=== PATIENT | female | born 1985 | race Caucasian/White ===

== ENCOUNTER 2020-06-20 14:07 | Emergency (ER) | payer OTHER ==
--- NOTE | 2020-06-20 14:49 | ED Physician Documentation ---
History of Present Illness - Stated complaint Stated Complaint: R LEG SWELLING REDNESS - Chief complaint Chief Complaint: Wound - History obtained from History obtained from: Patient - History of Present Illness Timing: Prior to arrival - Additonal information Additional information: 34-year-old female presents the emergency department for evaluation ofRight low er anterior calf redness. She reports that 3 to 4 days ago she noticed very small red papules but over the last 48 hours they have gotten progressively more swollen and tender. She does have a history of eczema just below the patella of the right knee that she has been using triamcinolone cream on. She reports that the appearance of the eczema is markedly improved. She denies fevers, any falls or trauma. She has no posterior calf pain tenderness. No history of DVT or cancer. No recent travel, immobilizations or surgery. Review of Systems Constitutional: reports: Reviewed and negative Ears: reports: Reviewed and negative Nose: reports: Reviewed and negative Throat: reports: Reviewed and negative Cardiac: reports: Reviewed and negative. denies: Pedal edema, Calf pain Respiratory: reports: Reviewed and negative GI: reports: Reviewed and negative : reports: Reviewed and negative Skin: reports: Rash, Lesions Musculoskeletal: reports: Reviewed and negative PD PAST MEDICAL HISTORY - Past Medical History Past Medical History: Yes - Present Medications Home Medications: Ambulatory Orders Medication Instructions Recorded Confirmed Cephalexin [Keflex] 500 mg PO Q6H #28 capsule 06/20/20 - Allergies Allergies/Adverse Reactions: Allergies Allergy/AdvReac Type Severity Reaction Status Date / Time No Known Drug Allergies Allergy Verified 06/20/20 14:14 - Social History Does the pt smoke?: No Smoking Status: Never smoker PD ED PE EXPANDED - General General: Alert, No acute distress - Derm Derm: Rash (exzema rash just below patella right knee. Multiple red papules anterior lower leg with surroudning erythema/induration c/w cellulitis) Results - Vitals Vitals: Vital Signs - 24 hr 06/20/20 14:11 Temperature 36.7 C Heart Rate 72 Respiratory 16 Rate Blood Pressure 145/80 H O2 Saturation 100 Oxygen O2 Source Room air PD MEDICAL DECISION MAKING - ED course Complexity details: reviewed results, considered differential, d/w patient ED course: 34-year-old female presents the emergency department for evaluation of right lower leg skin lesions. About 3 to 4 days ago she noticed faint red papules but over the last 48 hours that she has noticed progressive erythema and induration surrounding them. There has been no purulence or drainage. This is in a distinctly different area from her previously noted eczema rash. At this time her exam is more consistent with an early cellulitis. We will start her on Keflex. Advised warm compress. Emergent return precautions discussed. I do not believe that she has DVT. There is no leg swelling posterior calf pain tenderness. Departure - Departure Disposition: 01 Home, Self Care Clinical Impression: Cellulitis Qualifiers: Site of cellulitis: extremity Site of cellulitis of extremity: lower extremity Laterality: right Qualified Code(s): L03.115 - Cellulitis of right lower limb Condition: Stable Record reviewed to determine appropriate education?: Yes Instructions: Cellulitis Dc Prescriptions: Cephalexin [Keflex] 500 mg PO Q6H #28 capsule Comments: Georgina it looks like you have an early skin infection on your franks. Let us have you place a warm compress on the leg for 10 minutes 3 times a day. Please fill the prescription for the Keflex and begin taking as directed. With a superficial early infection I would expect the redness and pain to be improved over the next 48 to 72 hours. If worsening or not getting better please return to the emergency department.
[2020-06-20 15:05] VITALS: BP 132/74
== END 2020-06-20 15:02 | disposition home or self-care (01) ==
LOC: ED 14:07
DX: L03.115 Cellulitis of right lower limb (principal); L30.9 Dermatitis, unspecified
CPT/HCPCS: 99282; 99283

== ENCOUNTER 2021-02-09 18:20 | Emergency (ER) | payer OTHER ==
[2021-02-09 18:54] LABS: BASOPHILS % (AUTO) 0.6 %; EOSINOPHILS # (AUTO) 0.1 10^3/uL (0.0-0.7); EOSINOPHILS % (AUTO) 1.7 %; HCT - HEMATOCRIT 39.6 % (37.0-47.0); HGB - HEMOGLOBIN 13.4 g/dL (12.0-16.0); LYMPHOCYTES % (AUTO) 27.7 %; MEAN CORPUSCULAR HGB CONC 33.8 g/dL (32.0-36.0); MEAN CORPUSCULAR VOLUME 94.5 fL (81.0-99.0); MEAN PLATELET VOLUME 11.7 fL (7.9-10.8); MONOCYTES # (AUTO) 0.5 10^3/uL (0.0-1.0); MONOCYTES % (AUTO) 6.6 %; NEUTROPHILS # (AUTO) 4.5 10^3/uL (1.5-6.6); NEUTROPHILS % (AUTO) 63.3 %; PLT - PLATELET COUNT 172 10^3/uL (130-450); RED BLOOD COUNT 4.19 10^6/uL (4.20-5.40); WHITE BLOOD COUNT 7.1 x10^3/uL (4.8-10.8)
--- NOTE | 2021-02-09 19:04 | ED Physician Documentation ---
PD HPI CHEST PAIN - Stated complaint Stated Complaint: CP/LT SHOULDER PX - Chief complaint Chief Complaint: Cardiac - History obtained from History obtained from: Patient - History of Present Illness Pain level max: 3 Pain level now: 1 Location: No: Substernal, Left chest, Right chest, Left shoulder/arm, Right shoulder/arm, Left neck, Right neck, Left jaw, Right jaw, Epigastric, Upper back Radiation: No: Jaw, Neck, Back, Abdominal, Left upper extremity, Right upper extremity Improved by: Rest Worsened by: Movement Associated symptoms: No: Shortness of air, Diaphoresis, Nausea, Vomiting, Feeling faint / dizzy, General Weakness, Palpitations, Cough - Additional information Additional information: Patient is a 35-year-old female who states that she was having left shoulder pain earlier today before she laid down to take a nap. When she woke up to take a nap she was also feeling pain on the left upper portion of her chest. Worse with movement, better with rest. Does not recall any injuries or activity out of the normal. She states she is feeling better now, she feels like it felt like a pulled muscle. Does not have any cardiac history. No young cardiac history in the family. Nonradiating. No difficulty breathing. No fevers. No cough. No recent travel. Not on oral contraceptive pills or hormone replacement. Does not smoke. No leg swelling. 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 : None HEENT: None Psych: Depression Musculoskeletal: None Derm: None - Past Surgical History Past Surgical History: No - Present Medications Home Medications: Ambulatory Orders Medication Instructions Recorded Confirmed FLUoxetine [PROzac] 20 mg PO DAILY 02/09/21 02/09/21 - Allergies Allergies/Adverse Reactions: Allergies Allergy/AdvReac Type Severity Reaction Status Date / Time No Known Drug Allergies Allergy Verified 02/09/21 18:31 - Social History Does the pt smoke?: No Smoking Status: Never smoker PD ED PE NORMAL - Vitals Vital signs reviewed: Yes - General General: Alert and oriented X 3, No acute distress - HEENT HEENT: Moist mucous membranes - Neck Neck: Supple, no meningeal sign - Cardiac Cardiac: RRR, Strong equal pulses - Respiratory Respiratory: No respiratory distress, Clear bilaterally - Abdomen Abdomen: Soft, Non tender, Non distended - Back Back: No spinal TTP - Derm Derm: Warm and dry - Extremities Extremities: No edema, No calf tenderness / cord - Neuro Neuro: Alert and oriented X 3, marbleizing machine tender 2-12 intact, No motor deficit, No sensory deficit, Normal speech Eye Opening: Spontaneous Motor: Obeys Commands Verbal: Oriented GCS Score: 15 - Psych Psych: Normal mood, Normal affect - Free text exam Free text exam: No chest wall tenderness no spinal tenderness. No tenderness about the left shoulder. Full range of motion without pain. Results - Vitals Vitals: Vital Signs - 24 hr 02/09/21 02/09/21 02/09/21 18:25 18:55 19:20 Temperature 36.5 C 36.4 C L Heart Rate 72 67 71 Respiratory 18 20 16 Rate Blood Pressure 130/77 114/77 O2 Saturation 100 98 98 02/09/21 02/09/21 02/09/21 20:25 20:40 21:23 Temperature Heart Rate 61 54 L 58 L Respiratory 16 20 20 Rate Blood Pressure 134/75 H 131/83 H 123/77 O2 Saturation 99 99 97 Oxygen O2 Source Room air - EKG (time done) 1826 Rate: Rate (enter#) (77) Rhythm: NSR [place]: Normal Intervals: Normal [place] QRS: Normal Ischemia: Normal ST segments - Labs Labs: Laboratory Tests 02/09/21 02/09/21 02/09/21 18:47 18:47 18:47 WBC 7.1 RBC 4.19 L Hgb 13.4 Hct 39.6 MCV 94.5 MCH 32.0 H MCHC 33.8 RDW 12.0 Plt Count 172 MPV 11.7 H Neut # (Auto) 4.5 Lymph # (Auto) 2.0 [place] # (Auto) 0.5 Eos # (Auto) 0.1 Baso # (Auto) 0.0 Absolute Nucleated RBC 0.00 Nucleated RBC % 0.0 D-Dimer 277.6 H Sodium 138 Potassium 3.6 Chloride 105 Carbon Dioxide 25 Anion Gap 8.0 BUN 12 Creatinine 0.7 Estimated GFR (MDRD) 95 Glucose 149 H Calcium 9.2 Total Bilirubin 0.6 AST 16 ALT 14 Alkaline Phosphatase 72 Troponin I High Sens Total Protein 7.2 Albumin 4.2 Globulin 3.0 Albumin/Globulin Ratio 1.4 Lipase 34 18/21 18:47 WBC RBC Hgb Hct MCV MCH MCHC RDW Plt Count MPV Neut # (Auto) Lymph # (Auto) [place] # (Auto) Eos # (Auto) Baso # (Auto) Absolute Nucleated RBC Nucleated RBC % D-Dimer Sodium Potassium Chloride Carbon Dioxide Anion Gap BUN Creatinine Estimated GFR (MDRD) Glucose Calcium Total Bilirubin AST ALT Alkaline Phosphatase Troponin I High Sens 2.7 Total Protein Albumin Globulin Albumin/Globulin Ratio Lipase - Rads (name of study) Chest x-ray Radiology: Prelim report reviewed, EMP read contemporaneously, See rad report (No acute abnormality) CT angio chest Radiology: Prelim report reviewed, EMP read contemporaneously, See rad report (CT chest without acute cardiopulmonary abnormalities. No acute pulmonary emboli. No acute airspace disease) PD MEDICAL DECISION MAKING - ED course Complexity details: reviewed results, re-evaluated patient, considered differential (No ST elevation MD, no aortic dissection, no PE, no tension pneumothorax, no aortic aneurysm), d/w patient ED course: 35-year-old female with atypical chest pain. No acute findings on chest x-ray, laboratory findings, EKG. Her D-dimer was mildly elevated. Negative CT pulmonary angiogram. Symptoms resolved in the emergency department. Patient will follow up with her doctor for further care. Patient counseled regarding signs and symptoms for which I believe and urgent re-evaluation would be necessary. Patient with good understanding of and agreement to plan and is comfortable going home at this time This document was made in part using voice recognition software. While efforts are made to proofread this document, sound alike and grammatical errors may occur. Departure - Departure Disposition: 01 Home, Self Care Clinical Impression: Chest pain Qualifiers: Chest pain type: unspecified Qualified Code(s): R07.9 - Chest pain, unspecified Condition: Good Instructions: ED Chest Pain Atypical Unkn Cause Follow-Up: Provider,Other [Primary Care Provider] - Within 1 week Comments: The cause of your symptoms is unclear tonight. Your testing is normal. Follow- up with your doctor for further care. Return if you worsen.
[2021-02-09 19:07] LABS: ALBUMIN 4.2 g/dL (3.2-5.5); ALBUMIN/GLOBULIN RATIO 1.4 (1.0-2.2); BILIRUBIN,TOTAL 0.6 mg/dL (0.2-1.0); CALCIUM 9.2 mg/dL (8.5-10.3); CREATININE 0.7 mg/dL (0.4-1.0); POTASSIUM 3.6 mmol/L (3.5-5.0); TOTAL PROTEIN 7.2 g/dL (6.7-8.2)
--- NOTE | 2021-02-09 19:08 | XRAY Report ---
PROCEDURE: Chest 1 View X-Ray INDICATIONS: Chest Pain TECHNIQUE: One view of the chest was acquired. COMPARISON: None. FINDINGS: Surgical changes and devices: None. Lungs and pleura: No pleural effusions or pneumothorax. Lungs are clear. Mediastinum: Mediastinal contours appear normal. Heart size is normal. Bones and chest wall: No suspicious bony lesions. Overlying soft tissues appear unremarkable. IMPRESSION: Chest without acute cardiopulmonary abnormalities. Reviewed by: Harrison Page MD on 02/09/2021 7:07 PM PDT Approved by: Harrison Page MD on 02/09/2021 7:07 PM PDT Station ID: [id number]
[2021-02-09] MEDS ORDERED: IOVERSOL 320 100 ML VIAL IVP ONE ×2 (20:14→21:56)
--- NOTE | 2021-02-09 21:27 | CT Report ---
PROCEDURE: ANGIO CHEST W/WO INDICATIONS: chest pain, elevated d-dimer CONTRAST: IV CONTRAST: Optiray 320 ml: 80 PO CONTRAST: *NO PO CONTRAST TECHNIQUE: After the administration of intravenous contrast, 2 mm thick sections acquired from the pulmonary api soto to the posterior costophrenic angles. 3-dimensional maximum intensity projection (MIP) coronal a nd sagittal reformats were then acquired through the thorax. For radiation dose reduction, the follow ing was used: automated exposure control, adjustment of mA and/or kV according to patient size. COMPARISON: Chest radiograph from earlier same FINDINGS: Image quality: Excellent. Pulmonary arteries: Pulmonary arteries are normal in size, and demonstrate no intraluminal filling d efects to suggest central pulmonary embolism. Lungs and pleura: Lungs are clear. No pleural effusions or pneumothorax. Central and peripheral ai rways are patent. Calcified pulmonary granuloma in the right upper lobe. Mediastinum: Heart size is normal, without pericardial effusion. No mediastinal or hilar adenopathy . Thoracic aorta is normal in caliber and enhancement. Esophagus is normal in caliber, without hiat al hernia. Bones and chest wall: No suspicious bony lesions. Ribs and thoracic spine appear intact throughout. No axillary or supraclavicular adenopathy. The thyroid is normal in size and there are no incident al findings. Abdomen: Visualized upper abdominal solid organs appear normal in the early arterial phase of enhanc ement. IMPRESSION: CT chest without acute cardiopulmonary abnormalities. No acute pulmonary emboli. No acute airspace di sease. CLINICAL RECOMMENDATION STATEMENTS: In patients <35 years with an ITN detected on CT, MRI, or extrathyroidal ultrasound, the Committee re commends further evaluation with dedicated thyroid ultrasound if the nodule is ?1 cm and has no suspi cious imaging features, and if the patient has normal life expectancy. In patients ?35 years with an ITN detected on CT, MRI, or extrathyroidal ultrasound, the Committee re commends further evaluation with dedicated thyroid ultrasound if the nodule is ?1.5 cm and has no kobi picious imaging features, and if the patient has normal life expectancy. (ACR, 2014) Reviewed by: Harrison Page MD on 02/09/2021 9:25 PM PDT Approved by: Harrison Page MD on 02/09/2021 9:25 PM PDT Station ID: [id number]
[2021-02-09 21:40] VITALS: BP 121/83
== END 2021-02-09 21:40 | disposition home or self-care (01) ==
LOC: ED 18:20
DX: R07.89 Other chest pain (principal)
CPT/HCPCS: 36415; 71045; 71275; 80053; 83690; 84484; 85025; 85379; 93005; 99284; Q9967

== ENCOUNTER 2021-07-21 12:13 | Emergency (ER) | payer OTHER ==
[2021-07-21] MEDS ORDERED: COLCHICINE 0.6 MG TABLET PO STA (15:05)
--- NOTE | 2021-07-21 15:07 | ED Physician Documentation ---
PD HPI LOWER EXT INJURY - Stated complaint Stated Complaint: RT FT PX - Chief complaint Chief Complaint: Ext Problem - History obtained from History obtained from: Patient (35-year-old woman who has had on and off pain of the right first metatarsophalangeal joint and less over the left first MTP for years. Over the last couple of days its been much worse than it had been prior. There was no injury. No fevers.) Review of Systems Constitutional: reports: Reviewed and negative Eyes: reports: Reviewed and negative Ears: reports: Reviewed and negative Nose: reports: Reviewed and negative Throat: reports: Reviewed and negative Cardiac: reports: Reviewed and negative PD PAST MEDICAL HISTORY - Past Medical History Cardiovascular: None Respiratory: None Neuro: None Endocrine/Autoimmune: None GI: None DIRECTOR TREASURER: None : None HEENT: None Psych: Depression Musculoskeletal: None Derm: None - Past Surgical History Past Surgical History: No - Present Medications Home Medications: Ambulatory Orders Medication Instructions Recorded Confirmed FLUoxetine [PROzac] 20 mg PO DAILY 02/09/21 02/09/21 Indomethacin [Indocin] 25 mg PO BIDWM #10 07/21/21 predniSONE [Deltasone] 60 mg PO DAILY 5 Days #15 tablet 07/21/21 - Allergies Allergies/Adverse Reactions: Allergies Allergy/AdvReac Type Severity Reaction Status Date / Time No Known Drug Allergies Allergy Verified 07/21/21 13:01 - Social History Does the pt smoke?: No Smoking Status: Never smoker PD ED PE NORMAL - Vitals Vital signs reviewed: Yes - General General: Alert and oriented X 3, No acute distress - Extremities Extremities: Other (Warmth and redness of the right first MTP, no exquisite pain with range of motion.) - Neuro Neuro: Alert and oriented X 3, Normal speech Results - Vitals Vitals: Vital Signs - 24 hr 07/21/21 12:56 Temperature 36.8 C Heart Rate 78 Respiratory 15 Rate Blood Pressure 136/74 H O2 Saturation 99 Oxygen O2 Source Room air Departure - Departure Disposition: Home, Self Care Clinical Impression: Gout Qualifiers: Gout site: toe Gout etiology: idiopathic Chronicity: acute Laterality: right Qualified Code(s): M10.071 - Idiopathic gout, right ankle and foot Condition: Good Record reviewed to determine appropriate education?: Yes Instructions: ED Arthritis Gout, ED Diet Gout Prescriptions: predniSONE [Deltasone] 60 mg PO DAILY 5 Days #15 tablet Indomethacin [Indocin] 25 mg PO BIDWM #10 Comments: As discussed you do have apparent gout. I am sending a basic metabolic panel and a uric acid level. We are also prescribing medications that should help with the inflammation. Return for new or worsening symptoms. [place] allopurinol with them if your uric acid level is high. As discussed that cannot be started during the flare. You have a BMP and uric acid level pending. I will call with a very abnormal results, but you can also check online by going to the hospital website at [email or web address], click on the my [email or web address] tab and sign up for the patient portal.
[2021-07-21 15:26] VITALS: BP 123/75
[2021-07-21 15:39] LABS: CALCIUM 9.2 mg/dL (8.5-10.3); CREATININE 0.7 mg/dL (0.4-1.0); POTASSIUM 4.2 mmol/L (3.5-5.0); URIC ACID 4.7 mg/dL (2.6-7.2)
== END 2021-07-21 15:26 | disposition home or self-care (01) ==
LOC: ED 12:13
DX: M10.071 Idiopathic gout, right ankle and foot (principal)
CPT/HCPCS: 36415; 80048; 84550; 99283; A9270